=== PATIENT | female | born 1940 | race Caucasian/White ===

== ENCOUNTER 2017-05-21 21:06 | Emergency (ER) | payer OTHER, MEDICARE ==
[2017-05-21 21:24] VITALS: RESP 16
--- NOTE | 2017-05-21 21:51 | EDPHY ---
H & P Stated Complaint: Blood blister in mouth-concerned on Xarelto Time Seen by Provider: 05/21/17 21:42 HPI/ROS: CHIEF COMPLAINT: Blood blister HISTORY OF PRESENT ILLNESS: The patient is a 76-year-old female who comes to the emergency department because she has a blood blister on the mucosal aspect of her right inner cheek. She does not know how it started but she 1st noticed about 3 hours ago. She is concerned because she is on Xarelto. She states that she has some bleeding from a vein her foot few weeks ago that continued to bleed for a long time. She denies any other complaints. No difficulty breathing. No headache. No chest pain. She is on Xarelto for history of 2 PEs. REVIEW OF SYSTEMS: Constitutional: denies: chills, fever, recent illness, recent injury EENTM: See HPI denies: blurred vision, double vision, nose congestion Respiratory: denies: cough, shortness of breath Cardiac: denies: chest pain, irregular heart rate, lightheadedness, palpitations Gastrointestinal/Abdominal: denies: abdominal pain, diarrhea, nausea, vomiting, blood streaked stools Genitourinary: denies: dysuria, frequency, hematuria, pain Musculoskeletal: denies: joint pain, muscle pain Skin: denies: lesions, rash, jaundice, bruising Neurological: denies: headache, numbness, paresthesia, tingling, dizziness, weakness Hematologic/Lymphatic: denies: blood clots, easy bleeding, easy bruising Immunologic/allergic: denies: HIV/AIDS, transplant EXAM: GENERAL: Well-appearing, well-nourished and in no acute distress. HEAD: Atraumatic, normocephalic. EYES: Pupils equal round and reactive to light, extraocular movements intact, sclera anicteric, conjunctiva are normal. ENT: Small 0.5 cm blood blister to the right mucosal surface of her in her cheek. Not bleeding. Tense. Not tender. Not erythematous TMs normal, nares patent, oropharynx clear without exudates. Moist mucous membranes. NECK: Normal range of motion, supple without lymphadenopathy or JVD. LUNGS: Breath sounds clear to auscultation bilaterally and equal. No wheezes rales or rhonchi. HEART: Regular rate and rhythm without murmurs, rubs or gallops. ABDOMEN: Soft, nontender, normoactive bowel sounds. No guarding, no rebound. No masses appreciated. BACK: No CVA tenderness, no spinal tenderness, step-offs or deformities EXTREMITIES: Normal range of motion, no pitting or edema. No clubbing or cyanosis. NEUROLOGICAL: Cranial nerves II through XII grossly intact. Normal speech, normal gait. 5/5 strength, normal movement in all extremities, normal sensation PSYCH: Normal mood, normal affect. SKIN: Warm, dry, normal turgor, no visible rashes or lesions. Source: Patient, Family - Personal History Current Tetanus/Diphtheria Vaccine: Unsure Current Tetanus Diphtheria and Acellular Pertussis (TDAP): Unsure Tetanus Vaccine Date: 2006 - Medical/Surgical History Hx Asthma: No Hx Chronic Respiratory Disease: No Hx Diabetes: No Hx Cardiac Disease: Yes Hx Renal Disease: No Hx Cirrhosis: No Hx Alcoholism: No Hx HIV/AIDS: No Hx Splenectomy or Spleen Trauma: No Other PMH: PE x 2, Afib-sees [facility], HTN, varicose vein surgery. - Family History Significant Family History: No pertinent family hx - Social History Alcohol Use: Sober Drug Use: None Constitutional: Initial Vital Signs Temperature (C) 36.6 C 05/21/17 21:19 Heart Rate 91 05/21/17 21:19 Respiratory Rate 16 05/21/17 21:19 Blood Pressure 149/83 H 05/21/17 21:19 O2 Sat (%) 97 05/21/17 21:19 O2 Delivery Mode Room Air Allergies/Adverse Reactions: No Known Allergies Allergy (Verified 05/21/17 21:24) Home Medications: Medication Instructions Recorded Aspirin [Aspirin 81mg (OTC)] 81 mg PO HS 04/24/12 Nebivolol HCl [Bystolic 5 mg (RX)] 10 mg PO DAILY 04/24/12 Simvastatin [Zocor 10 mg (RX)] 10 mg PO DAILY18 04/24/12 amLODIPine/VALSARTAN [Exforge 1 tab PO HS 04/24/12 5-320 mg Tablet] Diovan 05/21/17 Medical Decision Making ED Course/Re-evaluation: I counseled the patient not to drain her blister. It is currently tamponade. We will have her simply observed until it clots. If she accidentally ruptures it I advised her to return here if it does not stop bleeding within an hour or if it is bleeding briskly. Patient understands and agrees. She is well appearing currently. Differential Diagnosis: Partial list of the Differential diagnosis considered include but were not limited to; blood blister, hematoma and although unlikely based on the history and physical exam, I also considered hemorrhage, infection. I discussed these differential diagnoses and the plan with the patient as well as the usual and expected course. The patient understands that the diagnosis is provisional and that in medicine we are not always correct and that further workup is often warranted. Usual and customary warnings were given. All of the patient's questions were answered. The patient was instructed to return to the emergency department should the symptoms at all worsen or return, otherwise to followup with the physician as we discussed. Departure - Departure Disposition: Home, Routine, Self-Care Clinical Impression: Blood blister Condition: Fair Instructions: Rivaroxaban (By mouth) Additional Instructions: Try not to Kirk your blister. If it begins bleeding monitor. If it bleeds for more than 1 hour or fit is bleeding briskly return to the emergency department. Referrals: Alf Kaur MD [Primary Care Provider] - As per Instructions
[2017-05-21 22:05] VITALS: BP 146/80; PULSE 88; TEMP 96.8; O2SAT 96
== END 2017-05-21 22:05 | disposition home or self-care (01) ==
DX: R23.8 Other skin changes (principal); I10 Essential (primary) hypertension; Z79.82 Long term (current) use of aspirin

== ENCOUNTER → 2017-08-25 | Outpatient (CLI) | payer OTHER, MEDICARE | LOC: CIMAGING 08:57 | PROVIDERS: ATTEND Internal Medicine | DX: I48.91 Unspecified atrial fibrillation (principal); R05 Cough; I51.7 Cardiomegaly | CPT/HCPCS: 71020; G0463 ==

== ENCOUNTER 2018-05-31 12:50 | Emergency (ER) | payer OTHER, MEDICARE ==
--- NOTE | 2018-05-31 14:16 | EDPHY ---
H & P Stated Complaint: cp under l breast hx afib Time Seen by Provider: 05/31/18 14:14 HPI/ROS: CHIEF COMPLAINT: Sharp chest pain HISTORY OF PRESENT ILLNESS: The patient presents to the ED after she developed an episode of sharp chest pain under her left breast earlier today. The patient reports the symptoms lasted approximately an hour and then resolved. She contacted her drag out worker who referred her to the emergency department. The patient is now asymptomatic. She has a history of atrial fibrillation and is chronically anticoagulated. The patient denies any fever, cough or congestion. She denies any additional acute complaints. She has no history of coronary artery disease by her report. REVIEW OF SYSTEMS: A comprehensive 10 point review of systems is otherwise negative aside from elements mentioned in the history of present illness. Source: Patient Exam Limitations: No limitations - Personal History Current Tetanus Diphtheria and Acellular Pertussis (TDAP): Yes Tetanus Vaccine Date: 2006 - Medical/Surgical History Hx Asthma: No Hx Chronic Respiratory Disease: No Hx Diabetes: No Hx Cardiac Disease: Yes Hx Renal Disease: No Hx Cirrhosis: No Hx Alcoholism: No Hx HIV/AIDS: No Hx Splenectomy or Spleen Trauma: No Other PMH: PE x 2, Afib-sees [facility], HTN, varicose vein surgery. - Social History Smoking Status: Never smoked - Physical Exam Exam: General Appearance: Alert, no distress Eyes: Pupils equal and round no pallor or injection ENT, Mouth: Mucous membranes moist Respiratory: There are no retractions, lungs are clear to auscultation Cardiovascular: Regular rate and rhythm Gastrointestinal: Abdomen is soft and nontender, no masses, bowel sounds normal Neurological: A&O, normal motor function, normal sensory exam, normal cranial nerves Skin: Warm and dry, no rashes, specifically no evidence of zoster Musculoskeletal: Neck is supple nontender Extremities: symmetrical, full range of motion Psychiatric: Patient is oriented X 3, there is no agitation Constitutional: Initial Vital Signs Temperature (C) 36.7 C 05/31/18 13:03 Heart Rate 84 05/31/18 13:03 Respiratory Rate 18 05/31/18 13:03 Blood Pressure 134/83 H 05/31/18 13:03 O2 Sat (%) 95 05/31/18 13:03 O2 Delivery Mode Room Air Allergies/Adverse Reactions: No Known Allergies Allergy (Verified 05/31/18 13:01) Home Medications: Medication Instructions Recorded Nebivolol HCl [Bystolic 5 mg (RX)] 10 mg PO DAILY 04/24/12 Simvastatin [Zocor 10 mg (RX)] 10 mg PO DAILY18 04/24/12 amLODIPine/VALSARTAN [Exforge 1 tab PO HS 04/24/12 5-320 mg Tablet] Diovan 05/31/18 Xarelto 05/31/18 Medical Decision Making - Diagnostics EKG Interpretation: EKG: Complete interpretation has been separately recorded in the [facility] archive. Summary impression: Atrial fibrillation, rate 77 Imaging Results: Imaging Impressions Chest X-Ray 05/31/18 14:15 Impression: Chronic cardiomegaly without decompensation. ED Course/Re-evaluation: The patient presents the ED after an episode of atypical chest pain earlier today. It was characterized by a sharp pain underneath her left breast. Her EKG demonstrates no evidence of ischemia. She is anticoagulated and I doubt pulmonary embolism as an etiology of her symptoms. The patient's troponin is 0. Patient has no history of coronary artery disease. She is scheduled to see her drag out worker tomorrow. The patient remained chest pain-free throughout her stay in the emergency department. Differential Diagnosis: Differential diagnosis considered includes atrial fibrillation, atrial flutter, dehydration, metabolic abnormality, acute-coronary syndrome herpes zoster - Data Points Laboratory Results: Laboratory Results 05/31/18 14:08 05/31/18 14:08 05/31/18 05/31/18 05/31/18 14:08 14:08 14:08 WBC 5.68 10^3/uL 10^3/uL (3.80-9.50) RBC 4.67 10^6/uL 10^6/uL (4.18-5.33) Hgb 14.7 g/dL g/dL (12.6-16.3) Hct 44.0 % % (38.0-47.0) MCV 94.2 fL fL (81.5-99.8) MCH 31.5 pg pg (27.9-34.1) MCHC 33.4 g/dL g/dL (32.4-36.7) RDW 13.1 % % (11.5-15.2) Plt Count 183 10^3/uL 10^3/uL (150-400) MPV 11.4 fL fL (8.7-11.7) Neut % (Auto) 60.3 % % (39.3-74.2) Lymph % (Auto) 27.5 % % (15.0-45.0) [place] % (Auto) 8.6 % % (4.5-13.0) Eos % (Auto) 2.3 % % (0.6-7.6) Baso % (Auto) 1.1 % % (0.3-1.7) Nucleat RBC Rel Count 0.0 % % (0.0-0.2) Absolute Neuts (auto) 3.43 10^3/uL 10^3/uL (1.70-6.50) Absolute Lymphs (auto) 1.56 10^3/uL 10^3/uL (1.00-3.00) Absolute Monos (auto) 0.49 10^3/uL 10^3/uL (0.30-0.80) Absolute Eos (auto) 0.13 10^3/uL 10^3/uL (0.03-0.40) Absolute Basos (auto) 0.06 10^3/uL 10^3/uL (0.02-0.10) Absolute Nucleated RBC 0.00 10^3/uL 10^3/uL (0-0.01) Immature Gran % 0.2 % % (0.0-1.1) Immature Gran # 0.01 10^3/uL 10^3/uL (0.00-0.10) PT 17.1 SEC H SEC (12.0-15.0) INR 1.38 H (0.83-1.16) APTT 38.1 SEC H SEC (23.0-38.0) Sodium 142 mEq/L mEq/L (135-145) Potassium 4.2 mEq/L mEq/L (3.3-5.0) Chloride 106 mEq/L mEq/L (97-110) Carbon Dioxide 26 mEq/l mEq/l (22-31) Anion Gap 10 mEq/L mEq/L (8-16) BUN 22 mg/dL mg/dL (7-23) Creatinine 0.8 mg/dL mg/dL (0.6-1.0) Estimated GFR > 60 Glucose 90 mg/dL mg/dL (70-100) Calcium 9.5 mg/dL mg/dL (8.5-10.4) Departure - Departure Disposition: Home, Routine, Self-Care Clinical Impression: Atypical chest pain, Atrial fibrillation Condition: Good Instructions: Chest Pain (ED) Additional Instructions: 1. Based upon the testing done in the Emergency Department today we see no evidence of a heart attack. 2. Please follow up tomorrow as scheduled with Dr. Rapp. 3. Please return to the ED immediately for any recurrent chest pain, difficulty breathing or other concerns. Referrals: Alf Kaur MD [Primary Care Provider] - As per Instructions
[2018-05-31 14:32] LABS: PLATELET COUNT 183 10^3/uL (150-400)
[2018-05-31 14:45] LABS: INR 1.38 (0.83-1.16); PROTIME(PATIENT) 17.1 SEC (12.0-15.0)
--- NOTE | 2018-05-31 15:05 | CPEKG ---
Test Reason : OPEN Blood Pressure : / mmHG Vent. Rate : 077 BPM Atrial Rate : 000 BPM P-R Int : 166 ms QRS Dur : 093 ms QT Int : 398 ms P-R-T Axes : 000 041 032 degrees QTc Int : 451 ms Atrial fibrillation Confirmed by Valente Goodman ([id number]) on 05/31/2018 3:04:41 PM Referred By: Confirmed By:Valente Goodman
[2018-05-31 15:44] VITALS: BP 128/77
== END 2018-05-31 15:43 | disposition home or self-care (01) ==
DX: R07.89 Other chest pain (principal); I48.91 Unspecified atrial fibrillation
CPT/HCPCS: 84484-PO